=== PATIENT | male | born 1965 | race Caucasian/White ===

== ENCOUNTER 2017-08-15 06:02 | Day surgery (SDC) | payer OTHER ==
[2017-08-08 12:05] VITALS: BMI 24.3
[2017-08-15] MEDS ORDERED: BUPIVACAINE HCL/EPINEPHRINE/PF 30 ML VIAL IJ ONE (07:09)
--- NOTE | 2017-08-15 07:18 | HP ---
History & Physical Update - History History: No Change - Physical Physical: No Change - Assessment Assessment: No Change - Plan Plan: No Change
[2017-08-15] MEDS ORDERED: PROPOFOL 20 ML ONE ×5 (07:26→07:27)
[2017-08-15] MEDS ORDERED: ePHEDrine SULFATE 50 MG/1 ML AMPULE ONE (07:26)
[2017-08-15] MEDS ORDERED: SUCCINYLCHOLINE CHLORIDE 200 MG/10 ML VIAL ONE (07:27)
[2017-08-15] MEDS ORDERED: DEXAMETHASONE SOD PHOSPHATE/PF 10 MG/ML SDV ONE (07:35)
[2017-08-15] MEDS ORDERED: MIDAZOLAM HCL 2 MG/2 ML SINGLE DOSE VIAL ONE (07:36)
[2017-08-15] MEDS ORDERED: ROPIVACAINE HCL 0.5% 30ML VIAL ONE (07:36)
[2017-08-15] MEDS ORDERED: oxyCODONE HCL 5 MG TABLET PO PRN (09:01)
[2017-08-15] MEDS ORDERED: oxyCODONE HCL 10 MG SUSTAINED ACTING TABLET PO ONE (09:01)
--- NOTE | 2017-08-15 09:08 | OP ---
Operative Note - Note: Operative Date: 08/15/17 Pre-Operative Diagnosis: Right shoulder high grade partial tear Operation: right shoulder arthroscopy. Right shoulder debridement/ rotator cuff repair Post-Operative Diagnosis: Same as Pre-op Surgeon: Ric Moon Anesthesiologist/DIRECTOR OF REAL ESTATE: Sundar Lucas Anesthesia: General Operative Report Dictated: Yes
--- NOTE | 2017-08-15 09:08 | DS ---
Physical Examination Vital Signs: Vital Signs Temperature 97.7 F 08/15/17 06:50 Pulse Rate 66 08/15/17 06:50 Respiratory Rate 18 08/15/17 06:50 Blood Pressure 124/76 08/15/17 06:50 O2 Sat by Pulse Oximetry (%) 97 08/15/17 06:50 Discharge Summary Reason For Visit: ROTATOR CUFF TEAR, RIGHT SHOULDER - Instructions - Home Medications Comprehensive Discharge Medication List: Ambulatory Orders Ascorbate Calcium [Vitamin C] 500 mg PO DAILY 08/08/17 Aspirin [Ecotrin] 81 mg PO DAILY 08/08/17 Multivitamins [Tab-A-Vit -] 1 tab PO DAILY 08/08/17 [place]-3 Fatty Acids/Fish Oil [Fish Oil 1,000 mg Capsule] 1 each PO DAILY
[2017-08-15] MEDS ORDERED: oxyCODONE HCL 10 MG SUSTAINED ACTING TABLET ONE (09:44)
[2017-08-15] MEDS ORDERED: ONDANSETRON 4 MG/2 ML VIAL IVPUSH PRN (10:06)
[2017-08-15 10:11] VITALS: BP 115/63; TEMP 98
[2017-08-15] MEDS ORDERED: LACTATED RINGERS SOLUTION 1,000 ML IV SCH (10:15)
[2017-08-15 10:39] VITALS: PULSE 66
--- NOTE | 2017-08-19 12:32 | PATH ---
Surgical Pathology Report Patient Name: SALLIE LAURENT Med. Rec. #: [id number] /Age/Gender: 1965 (Age: 52) / M Account: [id number] [facility] Taken: 08/15/2017 Received: 08/15/2017 Reported: 08/19/2017 Physicians: Ric Moon M.D. Specimen(s) Received SHAVINGS RIGHT SHOULDER Clinical History Right rotator cuff tear Final Diagnosis SHOULDER, RIGHT, ARTHROSCOPIC SHAVINGS: FIBROSYNOVIAL TISSUE, SCANT CARTILAGE AND SKELETAL MUSCLE. Electronically Signed Naya Mendez M.D. Gross Description Received in formalin, labeled "shavings right shoulder," is a 2.5 x 2.5 x 0.3 cm. aggregate of howell-yellow soft tissue fragments. A customer support representative portion is submitted in one cassette. 08/15/201708/15/2017
== END 2017-08-15 10:35 | disposition home or self-care (01) ==
LOC: FASU 06:02
PROVIDERS: ATTEND Orthopaedic Surgery
PROC: 0LB14ZZ Excision of Right Shoulder Tendon, Percutaneous Endoscopic Approach (ICD-10-PCS; principal; 2017-08-15 07:30)
PROC: 0RBJ4ZZ Excision of Right Shoulder Joint, Percutaneous Endoscopic Approach (ICD-10-PCS; 2017-08-15 07:30)
DX: M75.111 Incomplete rotator cuff tear or rupture of right shoulder, not specified as traumatic (principal)
CPT/HCPCS: 88304-TC